=== PATIENT | female | born 1980 ===

== ENCOUNTER → 2016-05-20 | Outpatient (CLI) | payer BC ==
[~2016-05-20] MED LIST: ACET-1311 PO; PREN1TAB29 PO
[2016-05-20 17:33] LABS: HEMATOCRIT 33.3 % (37-47)
[2016-05-20 17:52] LABS: URINE APPEARANCE CLEAR (CLEAR); URINE BILIRUBIN NEG (NEG); URINE COLOR YELLOW; URINE EPITHELIAL CELL AUTO >30 /lpf (0-5); URINE NITRITE NEG (NEG); URINE PH 5.5 (4.5-7.5); URINE SPECIFIC GRAVITY 1.038 (1.000-1.030); UROBILINOGEN NEG (NEG)
[2016-05-20 17:59] LABS: MANUAL MICROSCOPIC REQUIRED? NO; REVIEW REQ? YES
[2016-05-20 18:10] LABS: GTGD 50 Grams
== END | disposition home or self-care (01) ==
LOC: C.LAB1850 15:28
PROVIDERS: ATTEND Obstetrics & Gynecology
DX: O09.513 Supervision of elderly primigravida, third trimester (principal); Z3A.00 Weeks of gestation of pregnancy not specified

== ENCOUNTER → 2016-05-27 | Outpatient (CLI) | payer BC | END | disposition home or self-care (01) | LOC: C.LAB1850 07:38 | PROVIDERS: ATTEND Obstetrics & Gynecology | DX: O28.9 Unspecified abnormal findings on antenatal screening of mother (principal); Z3A.00 Weeks of gestation of pregnancy not specified ==

== ENCOUNTER → 2016-07-13 | Outpatient (CLI) | payer BC | END | disposition home or self-care (01) | LOC: C.LABSPEC 17:16 | PROVIDERS: ATTEND Obstetrics & Gynecology | DX: O09.513 Supervision of elderly primigravida, third trimester (principal); Z3A.00 Weeks of gestation of pregnancy not specified ==

== ENCOUNTER 2016-08-04 08:47 | Outpatient (CLI) | payer BC ==
[~2016-08-04] VITALS: Ht 157.5 cm; Wt 64.0 kg
[2016-08-04 10:25] VITALS: Ht 157.5 cm; Wt 64.0 kg
[2016-08-04] MEDS ORDERED: PREN1TAB29 PO (10:27)
[2016-08-05] MEDS ORDERED: ACET-1311 PO (11:38)
== END 2016-08-04 11:15 | disposition home or self-care (01) ==
LOC: C.OPB 08:47 → C.LD 08:47 → C.OPB 11:15 → EDSTATUS 08-08 08:50
PROVIDERS: ATTEND Obstetrics & Gynecology
DX: Z34.03 Encounter for supervision of normal first pregnancy, third trimester (principal)

== ENCOUNTER 2016-08-05 10:49 | Inpatient (IN) | payer BC ==
[~2016-08-05] VITALS: Ht 157.5 cm; Wt 64.1 kg
[~2016-08-05 10:49] MED LIST changes: -ACET-1311 PO
[2016-08-05] MEDS ORDERED: EpHEDrine SULFATE INJ 50 MG/ML AMP ONE (11:29)
[2016-08-05] MEDS ORDERED: FENTANYL CITRATE INJ 50 MCG/1 ML 2 ML VIAL ONE (11:29)
[2016-08-05] MEDS ORDERED: BUPIVACAINE 0.25% 30 ML VIAL ONE (11:29)
[2016-08-05] MEDS ORDERED: FENTANYL 2MCG/ML ROPIV 1.25MG/ML 100ML BAG EPI ONE (11:30)
[2016-08-05] MEDS ORDERED: ACET-1311 PO (11:38)
[2016-08-05 11:43] VITALS: BMI 25.8
[2016-08-05 11:58] LABS: HEMATOCRIT 39.2 % (37-47); MEAN CORPUSCULAR HEMOGLOBIN 32.4 pg (25-34); MEAN PLATELET VOLUME 10.4 fL (7.4-10.4); PLATELET COUNT 232 K/uL (130-400); RED BLOOD COUNT 4.17 M/uL (4.2-5.4); WHITE BLOOD COUNT 17.78 K/uL (4.8-10.8)
[2016-08-05] MEDS ORDERED: LACTATED RINGER'S 1000ML 1,000 ML IV PRN (12:00)
[2016-08-05 12:04] LABS: MEAN CORPUSCULAR HGB CONC 34.4 g/dl (32-36)
[2016-08-05] MEDS: LACTATED RINGER'S 1000ML 1,000 ML IV SCH ×3 (12:35→18:55)
[2016-08-05] MEDS ORDERED: NALOXONE HCL INJ 1 MG in SODIUM CHLORIDE 0.9% 1000ML 1,000 ML IV PRN (12:48)
[2016-08-05] MEDS ORDERED: LACTATED RINGER'S 1000ML 500 ML IV PRN ×2 (12:48→15:30)
[2016-08-05] MEDS ORDERED: NALOXONE HCL INJ 0.4 MG/1 ML VIAL/CARP IV PRN (13:00)
[2016-08-05] MEDS ORDERED: EpHEDrine SULFATE INJ 50 MG/ML AMP IV PRN (13:00)
[2016-08-05] MEDS ORDERED: DiphenhydrAMINE HCL 50 MG/ML VIAL IV PRN (13:00)
[2016-08-05] MEDS ORDERED: NALBUPHINE HCL INJ 10 MG/ML AMP IV PRN (13:00)
[2016-08-05] MEDS ORDERED: FENTANYL 2MCG/ML ROPIV 1.25MG/ML 100ML BAG EPI PRN (13:00)
[2016-08-05] MEDS ORDERED: PROMETHAZINE HCL INJ 6.25 MG in SODIUM CHLORIDE 0.9% 50ML 50 ML IV PRN (13:00)
[2016-08-05] MEDS ORDERED: PATIENT'S HEIGHT AND/OR WEIGHT NEEDED SCH (13:15)
[2016-08-05] MEDS ORDERED: OXYTOCIN 30 UNITS/500ML NSS IV PRN ×2 (15:30→21:30)
[2016-08-05 15:41] VITALS: Ht 157.5 cm; Wt 64.1 kg
[2016-08-05] MEDS ORDERED: ACETAMINOPHEN 325 MG TAB PO PRN (21:30)
[2016-08-05] MEDS ORDERED: ACETAMINOPHEN/CODEINE 300/30MG TAB PO PRN ×2 (21:30)
[2016-08-05] MEDS ORDERED: LANOLIN OINT EXT PRN ×2 (21:30)
[2016-08-05] MEDS ORDERED: DIPHTHERIA/TETANUS/PERTUSSIS 0.5 ML SYR/VIAL IM. ONE (21:30)
[2016-08-05] MEDS ORDERED: BENZOCAINE 20% AER SPR 82.5 GM CAN EXT PRN (21:30)
[2016-08-05] MEDS ORDERED: HYDROCORTISONE ACETATE 25 MG SUPP PR PRN (21:30)
[2016-08-05] MEDS ORDERED: SUPERCREAM 0.870 % 15GM JAR EXT PRN (21:30)
[2016-08-05] MEDS ORDERED: OXYTOCIN INJ 20 UNITS in LACTATED RINGER'S 1000ML 1,000 ML IV SCH (22:00)
--- NOTE | 2016-08-05 22:00 | DELIVERY SUMMARY ---
DATE OF OPERATION: 08/05/2016 The patient dilated to complete and pushed to deliver a viable male , Apgars 8 and 8 via over a second-degree perineal laceration. The mouth and nose were bulb suctioned at the perineum. Shoulders and body were delivered with ease and the infant cried at . At approximately 40 seconds of life, cord clamped and infant went to the maternal abdomen, where the cord was doubly clamped and then cut. Placenta delivered spontaneously and intact. A 3-vessel cord. Hemostasis achieved with dilute Pitocin and uterine massage. Bladder drained under sterile conditions for approximately 100 mL of urine. Laceration repaired in the usual fashion using 2-0 and 3-0 Vicryl. Mother and baby stable in recovery. Estimated blood loss 300 mL. I attest to the content of the Intraoperative Record and any orders documented therein. Any exceptions are noted below. MTDD
[2016-08-05 23:36] VITALS: BP 90/55; PULSE 80; TEMP 37; O2SAT 96
[2016-08-06 04:00] VITALS: BP 100/65; PULSE 74; TEMP 37; O2SAT 98
[2016-08-06] MEDS: IBUPROFEN 600 MG TAB PO PRN ×3 (04:27→22:08)
--- NOTE | 2016-08-06 06:49 | Progress Note ---
Subjective August 06, 2016. Subjective conversation w/ patient, physical exam Ambulation: ambulating normally Voiding: no voiding problems Diet Tolerance: Regular Diet Lochia: Moderate Feeding Type: Breast Feeding Pain: no pain issues Comment: she is hungry Objective Vital Signs Date Time Temp Pulse Resp B/P Pulse Ox O2 Delivery O2 Flow Rate FiO2 08/06/16 04:00 37.0 74 20 100/65 98 Room Air 08/05/16 23:36 96 Room Air 08/05/16 23:36 37.0 80 20 90/55 96 Room Air Physical Exam General Appearance: WELL-APPEARING, WD/WN, NO APPARENT DISTRESS Respiratory/Chest: lungs clear Cardiovascular: regular rate, rhythm Abdomen: non tender, soft Fundus: Firm, Relation to Umbilicus (at u) Extremities: non-tender Laboratory Results Last 24 Hours Test 08/05/16 11:48 White Blood Count 17.78 K/uL Red Blood Count 4.17 M/uL Hemoglobin 13.5 g/dL Hematocrit 39.2 % Mean Corpuscular Volume 94.0 fL Mean Corpuscular Hemoglobin 32.4 pg Mean Corpuscular Hemoglobin Concent 34.4 g/dl RDW Standard Deviation 45.6 fL RDW Coefficient of Variation 13.2 % Platelet Count 232 K/uL Mean Platelet Volume 10.4 fL Assessment and Plan Post- Day#: 1 Continue Routine Care: stable, routine care.
[2016-08-06 07:50] VITALS: BP 96/57; PULSE 69; TEMP 36.3
[2016-08-06] MEDS ORDERED: PRENATAL VITAMIN TAB PO SCH ×2 (08:00)
[2016-08-06] MEDS: DOCUSATE SODIUM 100 MG CAP PO SCH ×2 (08:04→20:29)
--- NOTE | 2016-08-06 09:47 | Anesthesia Procedure Note ---
Anesthesia Epidural Removal Nt Date & Time August 06, 2016 at 09:46 Vital Signs Pain Intensity: 7.0 Vital Signs Past 12 Hours Date Time Temp Pulse Resp B/P Pulse Ox O2 Delivery O2 Flow Rate FiO2 08/06/16 04:00 37.0 74 20 100/65 98 Room Air 08/05/16 23:36 96 Room Air 08/05/16 23:36 37.0 80 20 90/55 96 Room Air Notes Mental Status: alert / awake / arousable, participated in evaluation Nausea / Vomiting: adequately controlled Pain: adequately controlled Airway Patency, RR, SpO2: stable & adequate BP & HR: stable & adequate Hydration State: stable & adequate Neuraxial Anesthesia: was administered, sensory block is resolving Anesthetic Complications: no major complications apparent, pt satisfied with anesthetic care Epidural: removed without complications, with tip intact
[2016-08-06 12:35] VITALS: BP 85/66; PULSE 71; TEMP 36.5
[2016-08-06 15:45] VITALS: BP 91/57; PULSE 67; TEMP 36.8
[2016-08-06 20:30] VITALS: BP 97/63; PULSE 88; TEMP 37.2
[2016-08-07 01:30] VITALS: BP 113/77; PULSE 73; TEMP 36.4
[2016-08-07] MEDS: IBUPROFEN 600 MG TAB PO PRN (06:22)
--- NOTE | 2016-08-07 06:50 | Progress Note ---
Subjective August 07, 2016. Subjective conversation w/ patient, physical exam Voiding: no voiding problems Feeding Type: Breast Feeding Objective Vital Signs Date Time Temp Pulse Resp B/P Pulse Ox O2 Delivery O2 Flow Rate FiO2 08/07/16 01:30 Room Air 08/07/16 01:30 36.4 73 18 113/77 Room Air 08/06/16 20:30 37.2 88 18 97/63 Room Air 08/06/16 15:45 36.8 67 16 91/57 08/06/16 12:35 36.5 71 20 85/66 08/06/16 07:50 36.3 69 16 96/57 Physical Exam General Appearance: WELL-APPEARING, NO APPARENT DISTRESS Fundus: Firm, Non-Tender Extremities: no calf tenderness Assessment and Plan Post- Day#: 2 Continue Routine Care: - doing well - desires d/c - instructions given - f/u in 6 weeks
--- NOTE | 2016-08-07 06:52 | Discharge Instructions ---
Discharge Instructions Date of Service August 07, 2016. Admission Reason for Admission: R/O Labor Discharge Discharge Diagnosis / Problem: same Discharge Goals Goal(s): Routine recovery after delivery Medications Continue Dispensed Medications: supercream, dermaplast Activity Recommendations Activity Limitations: resume your previous activity . Instructions / Follow-Up Instructions / Follow-Up ACTIVITY RECOMMENDATIONS: * Gradual return to full activity over the next 2-3 weeks. * No lifting - nothing heavier than baby over the next 2-3 weeks. * Do not engage in vigorous exercise, sexual activity or sports until cleared by your physician. * Do not drive or operate any motorized equipment until cleared by your physician. * You may shower/bathe daily. MEDICATIONS: For discomfort or pain, you may use Acetaminophen (Tylenol), Ibuprofen (Advil), or Naproxen (Aleve) following the package directions. For constipation you may use Colace following the package directions. BREAST CARE: If you are not breast feeding: * Wear a supportive bra 24 hours a day for one to two weeks. * Avoid stimulating your breasts and nipples as much as possible during the first few weeks after delivery. * When taking a shower, have the warm water hit your back, not breasts. * When your breasts feel full, apply ice packs. Usually three to four times a day helps ease the discomfort. * Take a mild pain medication (Tylenol / Motrin) when you are uncomfortable. If breast feeding: * Use breast milk to lubricate nipples. Lansinoh cream may be used for sore nipples. You do not need to remove cream prior to breast feeding. If using a different brand of cream, check the label for directions regarding removal of cream prior to nursing. * Wear a supportive bra. * If having problems with breasts or breast feeding, call a jd edwards consultant or your health care provider. EPISIOTOMY CARE: After delivery, if you have an episiotomy (stitches), the following steps will ease discomfort and aid healing. * For the first 24 hours after delivery, place ice packs next to your episiotomy to help reduce swelling. * After the first 24 hour-period, sitz baths, either portable or in the tub, are suggested. A shower with a shower arm sprayed over the episiotomy may be comforting. * Rima care should be done after each voiding and bowel movement. Squirt warm water from a plastic bottle over the perineum (region of the body between the anus and urinary opening) and pat dry. * Use Dermoplast to ease discomfort. Shake container. [place] directly over the episiotomy. Place a Tucks on a clean sanitary pad next to your episiotomy. SPECIAL CARE INSTRUCTIONS: When you are discharged from the hospital, it is important for you to follow the instructions listed below: * During the first week at home, you should be able to care for yourself and your baby. In addition, the usual light household activities are encouraged. * Limit your activities to the way you feel. Do not try to clean the house or move furniture. Be sensible. * If you actively engage in sports and have done so up until the time of your delivery, you may resume these activities as soon as you feel able. This may take up to one month or even longer. Use good judgment. * Continue to take your vitamins for at least six weeks after the of your baby. * Your diet need not be limited unless you were on a special diet before your delivery. Breast-feeding mothers need around 2500 calories per day and at least 64-80 ounces of fluid per day (8 to 10 glasses). * You should eat foods from the four major food groups. Crash diets or fad diets are to be avoided. Eating lean meats, fresh fruits and vegetables, low-fat dairy products, high fiber foods and a regular exercise program, will help you get back to your pre- weight without putting your health at risk. * Constipation is sometimes a problem after delivery. Take a mild laxative as needed. If breast feeding, Milk of Magnesia is acceptable to use. You may use a suppository or Fleets enema if no episiotomy. * A daily shower or tub bath is suggested. Be sure to thoroughly and gently dry the perineum. * A bloody vaginal discharge will usually continue until around four weeks post . A small amount of bleeding may continue for as long as six weeks. Vaginal discharge changes from the bright red bleeding after delivery to pink then brownish and finally yellowish-pink before becoming white and disappearing. * Bleeding may increase with activity. Your first period may come in 4-8 weeks. If you are breast feeding, your period may be delayed even longer. * [place] (sex) can begin whenever both you and your partner feel comfortable and do not have any form of genital infection. It is recommended that you wait at least six weeks for internal and external healing to occur. If you have questions, please talk to your health care practitioner. A condom should be used to prevent infection and . * Foreplay, gentle intercourse and lubrication is very important the first several times to prevent pain. A water-based lubricant such as K-Y jelly or Astroglide may be used. * If you have RH negative blood and your baby is RH positive, you will receive RHOGAM by injection prior to discharge. The nurse will give you a card to keep with you that has the date and place that you received RHOGAM after delivery. * During your care, you had a Rubella screen done to check for the presence of rubella antibodies in your blood. If your test was negative, you will receive a Rubella vaccine prior to discharge. This vaccine may cause a fever, soreness at the injection site and flu-like symptoms. If these symptoms persist, notify your health care practitioner. is not advised for one month after a Rubella vaccine. * Verbalizes understanding of car seat law as reviewed with patient nursing. * Car Seat hand-out given and reviewed with patient by nursing. * Shaken baby information reviewed with patient by nursing. Call you doctor if: * Heavy bleeding (saturating several pads an hour) or passing clots the size of your fist. * A fever >101 degrees F (38.3 degrees C) on two occasions four hours apart and /or chills. * Unusual pain in the pelvic or vaginal areas. * "Baby Blues" lasting longer than two weeks. If you have any questions or concerns, call your health care practitioner at . FOLLOW UP VISIT: * Please call the office at to schedule a 6 week examination. It is important you keep this appointment. It is important for you to make arrangements for either yearly or twice yearly check-ups thereafter. Current Hospital Diet Patient's current hospital diet: Regular OB Diet Discharge Diet Recommended Diet: Regular OB Diet Pending Studies Studies pending at discharge: no Medical Emergencies . Who to Call and When: Medical Emergencies: If at any time you feel your situation is an emergency, please call 911 immediately. . Non-Emergent Contact Non-Emergency issues call your: Memorandum Statement Clerk Call Non-Emergent contact if: you have a fever, temperature is above 100.5 . . "Provider Documentation" section prepared by Greg Ford. . VTE Core Measure Inpt VTE Proph given/why not?: Treatment not indicated
[2016-08-07 07:49] VITALS: BP 97/62; PULSE 90; TEMP 36.8
[2016-08-07] MEDS: DOCUSATE SODIUM 100 MG CAP PO SCH (07:50)
[2016-08-07 11:30] VITALS: BP_DIAS 62; PULSE 90; TEMP 36.8
== END 2016-08-07 11:51 | disposition home or self-care (01) | DRG 775 ==
LOC: C.LD 10:49 → C.OPB 10:49 → C.LD 11:23 → C.OBG 23:57
PROVIDERS: ADMIT Obstetrics & Gynecology; ATTEND Obstetrics & Gynecology
PROC: 10E0XZZ Delivery of Products of Conception, External Approach (ICD-10-PCS; principal; 2016-08-05)
PROC: 0KQM0ZZ Repair Perineum Muscle, Open Approach (ICD-10-PCS; principal; 2016-08-05)
PROC: 10H07YZ Insertion of Other Device into Products of Conception, Via Natural or Artificial Opening (ICD-10-PCS; principal; 2016-08-05)
DX: O42.92 Full-term premature rupture of membranes, unspecified as to length of time between rupture and onset of labor (principal); Z37.0 Single live birth; O77.0 Labor and delivery complicated by meconium in amniotic fluid; O70.1 Second degree perineal laceration during delivery; O26.893 Other specified pregnancy related conditions, third trimester; Z3A.39 39 weeks gestation of pregnancy